=== PATIENT | female | born 1990 | race Hispanic/Latino ===

== ENCOUNTER 2017-02-02 15:08 | Outpatient (CLI) | payer OTHER ==
--- NOTE | 2017-02-02 19:13 | ULT ---
ULTRASOUND OBSTETRICAL COMPLETE: 02/02/17 HISTORY: 26-year-old female in second trimester of . Evaluate size and dates. FINDINGS: number: Rosa. lie: Cephalic. Maternal cervix: Poorly visualized. Placenta: Posterior. No placenta previa. Amniotic fluid volume: Normal. KIKE of 15 cm. heart rate: 154 bpm The following anatomy is visualized, with no evidence of anomalies: Head, lateral ventricles, cerebellum, nose and lips, spine, upper limbs, lower limbs, four chamber h eart, umbilical cord, cord insertion, stomach, kidneys, and bladder. biometry: Head circumference (HC): 19.1 cm 21w 2d Biparietal diameter (BPD): 5.2 cm 21w 5d Abdominal circumference (AC): 15.2 cm 20w 3d Femur length (FL): 3.6 cm 21w 3d Average ultrasound age (AUA): 21w 0d +/- 1w 0d Estimated date of delivery (DAVID): 06/15/17 Last menstrual period (LMP): 09/06/16 Gestational age by LMP: 21w 2d Estimated weight (EFW): 389g +/- 58g IMPRESSION: 1. Live second trimester intrauterine gestation. 2. Estimated gestational age of 21 weeks, 0 days +/- 1w 0d. 3. Cephalic lie. 4. No anatomical abnormalities. rufino [] POS: [facility]
== END 2017-02-02 15:09 | disposition home or self-care (01) ==
LOC: NAV ULT 15:08
PROVIDERS: ATTEND Family Medicine
DX: O09.292 Supervision of pregnancy with other poor reproductive or obstetric history, second trimester (principal); P01.7 Newborn affected by malpresentation before labor; Z3A.21 21 weeks gestation of pregnancy
CPT/HCPCS: 76805

== ENCOUNTER 2019-04-23 14:42 | Emergency (ER) | payer OTHER, SELFPAY ==
--- NOTE | 2019-04-23 15:21 | RAD ---
EXAM: Chest PA and lateral: HISTORY: Cough. COMPARISON: None. FINDINGS: Heart: Normal cardiac silhouette Aorta: Unremarkable Pulmonary vessels: Normal Costophrenic angles: Costophrenic angles are clear. Lungs: No consolidation or masses. Pneumothorax: No pneumothorax Osseous structures: No osseous abnormalities IMPRESSION: No acute cardiopulmonary process.
== END 2019-04-23 15:45 | disposition home or self-care (01) ==
LOC: NAV ERS 14:42
DX: J20.8 Acute bronchitis due to other specified organisms (principal); D50.9 Iron deficiency anemia, unspecified; F17.210 Nicotine dependence, cigarettes, uncomplicated
CPT/HCPCS: 71046; 87081; 87430; 87804

== ENCOUNTER 2019-06-18 17:08 | Emergency (ER) | payer SELFPAY ==
[~2019-06-18 17:08] MED LIST: Iopamidol 370 76% 100 ML VIAL ONE
[2019-06-18 17:51] LABS: #Eosinphils 0.1 thou/uL (0.0-0.7); #Lymphocytes 2.4 thou/uL (1.20-3.40); #Monocytes 0.5 thou/uL (0.11-0.59); #Neutrophils 4.4 thou/uL (1.40-6.50); %Basophils 0.5 % (0.0-1.0); %Eosinophils 1.2 % (0.0-10.0); %Lymphocytes 31.6 % (21.0-51.0); %Monocytes 7.3 % (0.0-10.0); %Neutrophils 59.5 % (42.0-75.0); Hemoglobin 13.6 g/dL (12.0-16.0); Mean Corpuscular HGB CONC 33.1 g/dL (32.0-36.0); Mean Corpuscular Hemoglobin 30.6 pg (27.0-31.0); Mean Corpuscular Volume 92.7 fL (78.0-98.0); Mean Platelet Volume 8.6 fL (7.4-10.4); Platelet Count 293 thou/uL (130-400); RBC Distribution Width 11.5 % (11.5-14.5); Red Blood Cell (RBC) Count 4.44 mill/uL (4.20-5.40); White Blood Cell (WBC) Count 7.4 thou/uL (4.8-10.8)
[2019-06-18 18:13] LABS: ALT (SGPT) 32 U/L (8-55); AST (SGOT) 13 U/L (5-34); Albumin 4.5 g/dL (3.5-5.0); Alkaline Phosphatase 61 U/L (40-110); Anion Gap 14 mmol/L (10-20); BUN (Urea Nitrogen) 17 mg/dL (7.0-18.7); Bilirubin, Total 0.4 mg/dL (0.2-1.2); Calc. Creatinine Clearance 0 mL/min (70-130); Carbon Dioxide 21 mmol/L (22-29); Chloride 106 mmol/L (98-107); Estimated GFR-MDRD Greater than 90; Globulin 2.6 g/dL (2.4-3.5); Glucose 90 mg/dL (70-105); Potassium 3.8 mmol/L (3.5-5.1); Protein, Total 7.1 g/dL (6.0-8.3); Sodium 137 mmol/L (136-145)
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
[2019-06-18] MEDS ORDERED: Sodium Chloride 0.9% 1,000 ML ONE (18:34)
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
[2019-06-18] MEDS ORDERED: Ketorolac Tromethamine 30 MG/ML VIAL ONE (19:01)
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
== END 2019-06-18 20:00 | disposition home or self-care (01) ==
LOC: NAV ERS 17:08
DX: S16.1XXA Strain of muscle, fascia and tendon at neck level, initial encounter (principal); S29.012A Strain of muscle and tendon of back wall of thorax, initial encounter; S70.01XA Contusion of right hip, initial encounter; R51 Headache; D64.9 Anemia, unspecified; F17.210 Nicotine dependence, cigarettes, uncomplicated; V89.2XXA Person injured in unspecified motor-vehicle accident, traffic, initial encounter
CPT/HCPCS: 70450; 71260; 72125; 72128; 72170; 80053; 85025; 96361; 96374; J1885; J7050; Q9967

== ENCOUNTER 2019-07-09 16:29 | Emergency (ER) | payer SELFPAY ==
[2019-07-09] MEDS ORDERED: Sulfameth/Trimethoprim DS 800-160mg TAB ONE (17:10)
== END 2019-07-09 17:10 | disposition home or self-care (01) ==
LOC: NAV ERS 16:29
DX: L03.113 Cellulitis of right upper limb (principal); D50.9 Iron deficiency anemia, unspecified; F17.210 Nicotine dependence, cigarettes, uncomplicated
CPT/HCPCS: 99283

== ENCOUNTER 2021-08-24 14:25 | Emergency (ER) | payer OTHER, SELFPAY ==
[2021-08-24] MEDS ORDERED: Penicillin V Potassium 250 MG TAB ONE (16:26)
== END 2021-08-24 16:45 | disposition home or self-care (01) ==
LOC: NAV ERS 14:25
DX: J02.0 Streptococcal pharyngitis (principal); E78.5 Hyperlipidemia, unspecified; D50.9 Iron deficiency anemia, unspecified
CPT/HCPCS: 87430; 99283

== ENCOUNTER 2022-04-08 07:18 | Emergency (ER) | payer OTHER ==
[2022-04-08 08:05] LABS: #Basophils 0.1 thou/uL (0.0-0.2); #Eosinphils 0.2 thou/uL (0.0-0.7); #Lymphocytes 2.6 thou/uL (1.20-3.40); #Monocytes 0.8 thou/uL (0.11-0.59); #Neutrophils 4.1 thou/uL (1.40-6.50); %Basophils 0.9 % (0.0-1.0); %Eosinophils 2.5 % (0.0-10.0); %Lymphocytes 33.3 % (21.0-51.0); %Neutrophils 53.3 % (42.0-75.0); Hemoglobin 13.2 g/dL (12.0-16.0); Mean Corpuscular HGB CONC 32.7 g/dL (32.0-36.0); Mean Corpuscular Hemoglobin 31.6 pg (27.0-31.0); Mean Corpuscular Volume 96.8 fl (78.0-98.0); Mean Platelet Volume 8.6 fL (7.4-10.4); Platelet Count 308 10x3/uL (130-400); RBC Distribution Width 10.9 % (11.5-14.5); Red Blood Cell (RBC) Count 4.17 mill/uL (4.20-5.40); White Blood Cell (WBC) Count 7.7 10x3/uL (4.8-10.8)
[2022-04-08 08:14] LABS: Bilirubin Negative (Negative); Blood, Urine Large (Negative); Clarity Slightly Cloudy (Clear); Glucose, Urine (Dipstick) Negative (Negative); Ketone, Urine Negative (Negative); Leukocyte Trace (Negative); Nitrite Negative (Negative); Protein, Urine (Dipstick) Negative (Neg-Trace); Specific Gravity, Urine 1.025 (1.005-1.030); Urobilinogen 0.2 mg/dL (Less than 2); pH, Urine 5.5 (5.0-9.0)
[2022-04-08 08:15] LABS: Bacteria/HPF 1+ HPF (None Seen); Pregnancy Test - Urine (BHCG) Negative (Negative); Specific Gravity 1.025 (1.002-1.036)
[2022-04-08 08:16] LABS: Pregu Control Background? CLEAR/WHITE (CLR/WHITE); Pregu Control Bar Appear? YES (CONTROL BAR)
[2022-04-08 08:18] LABS: ALT (SGPT) 57 U/L (8-55); AST (SGOT) 29 U/L (5-34); Albumin 4.1 g/dL (3.5-5.0); Alkaline Phosphatase 64 U/L (40-110); Anion Gap 12 mmol/L (10-20); BUN (Urea Nitrogen) 17 mg/dL (7.0-18.7); Bilirubin, Total 0.4 mg/dL (0.2-1.2); Calc. Creatinine Clearance 0 mL/min (70-130); Calcium 8.7 mg/dL (7.8-10.44); Carbon Dioxide 21 mmol/L (22-29); Chloride 108 mmol/L (98-107); Estimated GFR 121; Globulin 3.1 g/dL (2.4-3.5); Glucose 96 mg/dL (70-105); Potassium 3.8 mmol/L (3.5-5.1); Protein, Total 7.2 g/dL (6.0-8.3); Sodium 137 mmol/L (136-145)
[2022-04-08] MEDS ORDERED: Lidocaine 1% (PF) 30 ML VIAL ONE (10:14)
[2022-04-08] MEDS ORDERED: cefTRIAXone\\ROCEPHIN 500 MG VIAL ONE (10:14)
[2022-04-09] LABS: Chlamydia by PCR DETECTED (NotDetected); GC by PCR Not Detected (NotDetected)
== END 2022-04-08 10:37 | disposition home or self-care (01) ==
LOC: NAV ERS 07:18
DX: N93.9 Abnormal uterine and vaginal bleeding, unspecified (principal); N73.9 Female pelvic inflammatory disease, unspecified; D50.9 Iron deficiency anemia, unspecified; E78.00 Pure hypercholesterolemia, unspecified; Z20.822 Contact with and (suspected) exposure to COVID-19
CPT/HCPCS: 80053; 81003; 81015; 81025; 85025; 87480; 87491; 87510; 87591; 87660; 87804; 96372; 99284; J0696; J2001; U0003; U0005

== ENCOUNTER 2023-04-08 16:47 | Emergency (ER) | payer BC, OTHER ==
[2023-04-08] MEDS ORDERED: Acetaminophen 325 MG TAB ONE (17:22)
== END 2023-04-08 18:38 | disposition home or self-care (01) ==
LOC: NAV ERS 16:47
DX: J10.1 Influenza due to other identified influenza virus with other respiratory manifestations (principal); E78.00 Pure hypercholesterolemia, unspecified; Z79.899 Other long term (current) drug therapy
CPT/HCPCS: 71046

== ENCOUNTER 2024-05-07 02:35 | Emergency (ER) | payer BC, OTHER ==
[2024-05-07] MEDS ORDERED: Dexamethasone 10 MG/ML VIAL ONE (03:23)
== END 2024-05-07 03:32 | disposition home or self-care (01) ==
LOC: NAV ERS 02:35
DX: J02.9 Acute pharyngitis, unspecified (principal); F17.290 Nicotine dependence, other tobacco product, uncomplicated
CPT/HCPCS: 87081; 87428; 87430; 99283; J1100